=== PATIENT | male | born 1970 | race American Indian/Alaskan Native ===

== ENCOUNTER 2021-04-01 05:35 | Inpatient (IN) | payer SELFPAY ==
[2021-04-01] MEDS ORDERED: NORepinephrine/NS 4 MG-250 ML 4 MG/250 ML BAG IV ONE (05:44)
[2021-04-01] MEDS ORDERED: EPINEPHrine 1 MG/1 ML 8 MG in SODIUM CHLORIDE 0.9% 250ML 242 ML IV ONE (05:46)
[2021-04-01] MEDS ORDERED: SODIUM CHLORIDE 0.9% 1000 ML 1,000 ML IV ONE ×2 (05:52→09:34)
[2021-04-01] MEDS ORDERED: fentaNYL 100 MCG/2 ML INJ IV PRN ×2 (05:53→12:48)
[2021-04-01] MEDS ORDERED: MINERAL OIL/PETROLATUM, WHITE OPHTH OINT 3.5 GM OU PRN (05:53)
[2021-04-01] MEDS ORDERED: LIP THERAPY VASELINE TP PRN (05:53)
[2021-04-01] MEDS ORDERED: fentaNYL DRIP Premix 2,000 MCG/100 ML BAG IV SCH (06:00)
[2021-04-01] MEDS: NORepinephrine/NS 4 MG-250 ML 4 MG/250 ML BAG IV SCH ×3 (06:00→15:53)
--- NOTE | 2021-04-01 06:00 | Emergency Department Report ---
<PORTER MCDANIELSVIANCA - Last Filed: 04/01/21 05:56> ED CPR HPI - General Chief Complaint: Cardiac Arrest/CPR Stated Complaint: RESP ARREST Time Seen by Provider: 04/01/21 05:35 Source: EMS Mode of arrival: Stretcher Limitations: Altered Mental Status, Other - History of Present Illness Initial Comments: Patient is a 50-year-old male who presents emergency room with EMS for cardiac arrest. Patient initially was in route with EMS for altered mental status and the patient became bradycardia and went to cardiac arrest. EMS initiated CPR. The patient went to cardiac arrest as soon as EMS pulled into the hospital. A.m. . CPR in progress. Patient intubated with a Arturo tube. Initial complaint that the family gave to EMS was altered mental status and coffee-ground emesis. MD Complaint: stopped breathing -: minute(s) Place: other (In the back of the ambulance) Bystander CPR Performed: Yes AED Applied by Bystander/Youth Coordinator: No Shock Advised: No Initial Findings in the Field: lethargic ROSC in the Field: No Associated Injuries: No Treatments Prior to Arrival: BMV, other airway device, chest compressions - Related Data Allergies Allergy/AdvReac Type Severity Reaction Status Date / Time No Known Allergies Allergy Unverified 04/01/21 06:01 ED Review of Systems Comment: Unobtainable due to pts medical conditions ED Past Medical Hx - Past Medical History Previous Medical History?: Yes Hx Hypertension: Yes - Surgical History Past Surgical History?: No - Family History Family history: no significant ED Physical Exam - General Limitations: Other General appearance: obtunded - Head Head exam: Present: atraumatic, normocephalic - Eye Eye exam: Present: scleral icterus - ENT ENT exam: Present: mucous membranes dry - Neck Neck exam: Present: normal inspection - Respiratory Respiratory exam: Present: decreased breath sounds. Absent: respiratory distress, wheezes, rales - Cardiovascular Cardiovascular Exam: Present: other (No pulse noted). Absent: systolic murmur, diastolic murmur, rubs, gallop - GI/Abdominal GI/Abdominal exam: Present: soft, diminished bowel sounds - Rectal Rectal exam: Present: deferred - Extremities Exam Extremities exam: Present: normal inspection - Back Exam Back exam: Present: normal inspection - Neurological Exam Neurological exam: Present: altered - Skin Skin exam: Present: warm, dry, intact, normal color. Absent: rash ED Course - Reevaluation(s) Reevaluation #1: Initial evaluation done. Patient went to cardiac arrest with EMS. Report received from EMS. CPR continued. Patient given 1 round of epi. Patient had spontaneous return of circulation. Patient blood pressure low. Patient started on Levophed. Colliver in accordance with ACLS guidelines. See code note. 04/01/21 05:32 Reevaluation #2: Patient is Arturo tube removed and the patient was reintubated to the ET tube. 04/01/21 05:45 Reevaluation #3: Patient's heart in the 80s. Patient has a pulse. Patient's lung sounds are clear. Patient on ventilator. Patient's blood pressures decreased and the Levophed was increased. 04/01/21 06:14 Reevaluation #4: Patient blood pressure improved. Patient still on the ventilator. Patient signed out to the oncoming physician, Dr. Silva. Final disposition will come from Dr. Silva. 04/01/21 06:16 - EJ/Peripheral Line Neck R Time Out Performed: Yes Indications: multiple IV sites needed Skin Cleansed in Sterile Fashion: Yes Size: 18 Dressing Placed: Tegaderm, tape Patient Tolerated Procedure: well, no complications - Intubation Time Out Performed: Yes Sedative: none Laryngoscope: fiberoptic video scope Size: 4 Assist Device Used: fiberoptic device ET Tube Size: 7.5 Tube Secured Depth (cm): 22 Tube Secured Location: teeth Tube Placement Confirmation: visualized tube passing t, equal breath sounds bilat, no breath sounds over epi, confirmation by capnometr Patient Tolerated Procedure: well, no complications Intubation Complications: none ED Medical Decision Making - Radiology Data Radiology results: report reviewed, image reviewed - Differential Diagnosis Cardiac arrest, GI bleed, respiratory failure, altered mental status, ICH Critical Care Time: Yes Critical care time in (mins) excluding proc time.: 35 Critical Care Time: 35 minutes ED Disposition Clinical Impression: Cardiac arrest, Upper GI bleed, Acute metabolic encephalopathy, Acute liver failure, Atrial fibrillation, Alcoholic liver disease Disposition: ADMITTED INPATIENT Is pt being admited?: Yes Does the pt Need Aspirin: No Condition: Critical Referrals: PRIMARY CARE, [Primary Care Provider] - 3-5 Days Time of Disposition: 06:17 <CASH SILVA - Last Filed: 04/01/21 08:55> ED CPR HPI - History of Present Illness Initial Comments: I obtained further history from upon her arrival. is Mrs. Schilling phone #[phone]. also gave contact information for next of kin who is patient's brother Chirga Gloria phone #[phone] mobile home #4 Brother [phone] stated that Mr. Tan has had abdominal pain rating to the back for the last several days. He also has had bloody vomitus and bloody stools for the last few days. This morning patient was gasping for air. He she laid the patient down on the f saul. She is afraid that the patient will go into "arrest" and she will have to do CPR. Patient's last a lot of weight over the last few months. He has not received medical care in quite some time. He takes ibuprofen daily for chronic left shoulder pain. He has a chronic left shoulder dislocation. He drinks 12 large "tall boy" beers per day. He is unemployed. He has 2 biological children as well as 2 stepchildren with his . ED Review of Systems ROS: Stated complaint: RESP ARREST Other details as noted in HPI ED Past Medical Hx - Past Medical History Previous Medical History?: Yes Additional medical history: Rectal fistula, neck abscess, chronic left shoulder dislocation - Surgical History Past Surgical History?: Yes Additional Surgical History: Rectal fistula surgery, neck abscess surgical I&D - Family History Family history: other (Family history noncontributory during this encounter) - Social History Smoking Status: Current Every Day Smoker Substance Use Type: Alcohol ED Course Vital Signs 04/01/21 04/01/21 04/01/21 06:15 07:00 07:06 Temperature Pulse Rate 94 H 108 H 106 H Respiratory 17 18 19 Rate Blood Pressure 109/14 103/28 88/37 O2 Sat by Pulse 100 100 100 Oximetry 04/01/21 04/01/21 04/01/21 07:10 07:16 07:20 Temperature Pulse Rate 106 H 97 H 102 H Respiratory 19 18 19 Rate Blood Pressure 68/18 86/29 81/21 O2 Sat by Pulse 100 100 Oximetry 04/01/21 04/01/21 04/01/21 07:29 07:31 07:35 Temperature Pulse Rate 97 H 103 H 96 H Respiratory 18 18 16 Rate Blood Pressure 86/36 78/27 O2 Sat by Pulse 100 100 Oximetry 04/01/21 04/01/21 04/01/21 07:41 07:45 07:48 Temperature 90.1 F L Pulse Rate 97 H 102 H Respiratory 18 17 Rate Blood Pressure 75/30 80/29 O2 Sat by Pulse 100 Oximetry 04/01/21 04/01/21 04/01/21 07:50 07:55 08:01 Temperature Pulse Rate 96 H 106 H 106 H Respiratory 18 19 19 Rate Blood Pressure 85/22 97/13 98/47 O2 Sat by Pulse 100 100 100 Oximetry 04/01/21 04/01/21 04/01/21 08:05 08:11 08:15 Temperature Pulse Rate 104 H 99 H 107 H Respiratory 19 19 20 Rate Blood Pressure 89/21 95/40 98/41 O2 Sat by Pulse 100 100 Oximetry 04/01/21 04/01/21 08:20 08:25 Temperature Pulse Rate 101 H 103 H Respiratory 19 21 Rate Blood Pressure 92/36 96/38 O2 Sat by Pulse 100 100 Oximetry - Reevaluation(s) Reevaluation #5: 04/01/21 06:46 I received critical values of hemoglobin 3, PTT 51 INR 5.74 PTT 89 immediately attempted to contact spouse for further history per phone. No answer 04/01/21 07:20 I evaluated patient. Patient has jaundice sclera. He is not responsive. There is melena obvious at the rectal region. On digital exam melanotic stool H emoccult positive. Guaiac card sent to lab. I placed CVL under emergent conditions. Femoral site chosen for CVL for expedited resuscitation. Patient requires vasopressor and emergent blood transfusion. I asked nurse to O- blood from blood bank. 04/01/21 07:30 Nurse is currently transfusing 2 units of O- blood. 04/01/21 07:58 I spoke with in person. I brought to the bedside. Nurse reported patient moving all 4 extremities. Versed bolus and infusion ordered. 04/01/21 08:36 I spoke with hospitalist to arrange CCU admission. Octreotide infusion and bolus ordered. Ceftriaxone ordered. Asked nurse to expedite FFP transfusion. - Central Line Placement Right Femoral Consent Obtained: emergent situation Time Out Performed: Yes Patient Placed on Monitor/Pulse Ox: Yes Prep: mask, gown, gloves, other (Drape cap ) Central Line Prep: Chlorhexidine scrub Ultrasound Used for Placement: Yes Central Line Lumen Inserted: triple Reason for Insertion: Emergency Venous Access Bloods Obtained for Lab: Yes Central Line Position: good blood return, sutured in place with nyl, other (Biopatch) Dressing Applied: Tegaderm Patient Tolerated Procedure: well Complications: none ED Medical Decision Making - Lab Data Result diagrams: 04/01/21 05:56 04/01/21 05:56 - EKG Data -: EKG Interpreted by Me - EKG Data 04/01/21 07:25 EKG obtained 0655 EKG interpreted by me ventricular rate 100 bpm atrial fibrillation normal axis prolonged QTC no ST elevation nonspecific T wave pattern - Radiology Data Radiology results: report reviewed Patient Name: DEVENDRA TAN Gender: Male Date of : 1970 Referring Provider: VIANCA BUENROSTRO III Organization: [facility] Accession Number: [id number] Requested Date: April 01, 2021 06:40 Report Status: Final Requested Procedure: 1 Procedure Description: CT head/brain wo con Modality: CT Findings Reporting MD: Jaquan Fregoso Dictation Time: April 01, 2021 05:56 [place] Floors Installer: Not available Senior Php Developer Date: CT HEAD WITHOUT CONTRAST INDICATION: Altered Mental Status. TECHNIQUE: All CT scans at this location are performed using CT dose reduction for ALARA by means of automated exposure control. COMPARISON: None available. FINDINGS: HEMORRHAGE: None. EXTRA-AXIAL SPACES: Normal in size and morphology for the patient's age. VENTRICULAR SYSTEM: Normal in size and morphology for the patient's age. BRAIN PARENCHYMA: No acute findings. MIDLINE SHIFT OR HERNIATION: None. ORBITS: Normal as visualized. SOFT TISSUES OF HEAD: Normal. CALVARIUM: Normal. VISUALIZED PARANASAL SINUSES AND MASTOID AIR CELLS: Clear. ADDITIONAL FINDINGS: None. IMPRESSION: 1. The exam is limited due to patient motion. Accounting for this, no acute intracranial abnormality. Signer Name: Jaquan Fregoso MD Signed: 04/01/2021 5:56 AM Workstation Name: [id number] - Medical Decision Making 1. Acute upper GI bleed: Patient takes ibuprofen daily for chronic left shoulder pain. Patient is a chronic, shoulder dislocation as reported per . Differential diagnosis includes peptic ulcer disease alcoholic gastritis. Esophageal variceal bleed is also probable with history of alcohol liver disease. Blood pressure improved with transfusion of O- blood. Patient still requires Levophed vasopressor therapy. Dr. Nunez machine set up technician recommended octreotide to address likely variceal bleed as well as prophylactic ceftriaxone to address SBP in the setting of likely alcoholic liver cirrhosis. 2. Alcoholic liver disease: Jaundice evident on exam. AST ALT bilirubin all markedly elevated patient exhibits coagulopathy. FFP ordered. 3. Acute metabolic encephalopathy due to poor perfusion. Ammonia level ordered to rule out or rule in hepatic encephalopathy. CT head without acute findings. 4. Cardiac arrest likely due to severe hemorrhage. CT angiogram of the chest to rule out pulmonary embolism. Will obtain serial troponin values to rule out MN. CT abdomen pelvis ordered to rule in or rule out other possible causes of cardiac arrest. 5. Atrial fibrillation: Normal ventricular rate after resuscitation with blood transfusion Critical care time in (mins) excluding proc time.: 100 Critical care attestation.: If time is entered above; I have spent that time in minutes in the direct care of this critically ill patient, excluding procedure time. 100 minutes of critical care time excluding procedures were used in the care of the patient. I came immediately to the bedside upon patient's return from CT scan. I inserted right femoral CVL. I discussed case with family members who arrived. I discussed treatment plan with the nursing team members. I reviewed electronic record. I kept the family members informed. Patient required multiple interventions and reassessments.
--- NOTE | 2021-04-01 06:16 | XRay Report ---
CHEST 1 VIEW INDICATION: ETT placement. COMPARISON: None. FINDINGS: Support devices: Endotracheal tube has been placed with tip approximately 4 cm above the meli. [place] suzie tube tip is in the distal stomach. Heart: Stable. Lungs/Pleura: No pneumothorax. There is mild airspace disease in the right mid and lower lung. IMPRESSION: 1. Tubes in satisfactory position. 2. Mild airspace disease in the right mid to lower lung is concerning for pneumonia. Given the distri bution, aspiration could have this appearance. Signer Name: Jaquan Fregoso MD Signed: 04/01/2021 6:12 AM Workstation Name: [id number]
[2021-04-01 06:42] LABS: INR 5.74 (0.87-1.13); Partial Thromboplastin Time 89.8 Sec. (24.2-36.6)
[2021-04-01 06:47] LABS: Mean Corpuscular HGB Conc 27 % (32-34); Platelet Count 150 K/mm3 (140-440); Red Blood Count 0.91 M/mm3 (3.65-5.03)
[2021-04-01] MEDS ORDERED: SODIUM CHLORIDE 0.9% 500 ML 500 ML IV ONE ×3 (06:47→09:32)
[2021-04-01 06:49] LABS: Creatine Kinase MB 3.8 ng/mL (0.0-4.0)
[2021-04-01 06:50] LABS: Alanine Aminotransferase 235 units/L (7-56); Albumin 1.3 g/dL (3.9-5); BUN/Creatinine Ratio 12; Blood Urea Nitrogen 23 mg/dL (9-20); Calcium 7.5 mg/dL (8.4-10.2); Hemolysis Index 0
[2021-04-01 06:52] LABS: Hemoglobin 3.2 gm/dl (11.8-15.2)
[2021-04-01 06:54] LABS: Hematocrit 11.9 % (35.5-45.6); Mean Corpuscular Volume 130 fl (84-94); Red Cell Distribution Width 21.1 % (13.2-15.2)
[2021-04-01] MEDS ORDERED: MIDAZOLAM 5 MG/5 ML INJ MDV IV NR (07:00)
--- NOTE | 2021-04-01 07:00 | Cat Scan Report ---
CT HEAD WITHOUT CONTRAST INDICATION: Altered Mental Status. TECHNIQUE: All CT scans at this location are performed using CT dose reduction for ALARA by means of automated e xposure control. COMPARISON: None available. FINDINGS: HEMORRHAGE: None. EXTRA-AXIAL SPACES: Normal in size and morphology for the patient's age. VENTRICULAR SYSTEM: Normal in size and morphology for the patient's age. BRAIN PARENCHYMA: No acute findings. MIDLINE SHIFT OR HERNIATION: None. ORBITS: Normal as visualized. SOFT TISSUES OF HEAD: Normal. CALVARIUM: Normal. VISUALIZED PARANASAL SINUSES AND MASTOID AIR CELLS: Clear. ADDITIONAL FINDINGS: None. IMPRESSION: 1. The exam is limited due to patient motion. Accounting for this, no acute intracranial abnormality. Signer Name: Jaquan Fregoso MD Signed: 04/01/2021 6:56 AM Workstation Name: [id number]
[2021-04-01] MEDS ORDERED: MIDAZOLAM 5 MG/5 ML INJ MDV IV ONE (07:44)
[2021-04-01] MEDS: MIDAZOLAM 2 MG/2 ML INJ IV PRN ×2 (07:48→08:00)
[2021-04-01 07:56] LABS: Bacteria,Urine 4+ /HPF (Negative); Bilirubin,Urine SM (Negative); Blood,Urine LG (Negative); Color,Urine Amber (Yellow); Hyaline Casts,Urine 81 /LPF; Mucus,Urine FEW /HPF; Renal Epithelial Cells,Urine 6 /LPF
[2021-04-01] MEDS ORDERED: PANTOPRAZOLE 40 MG INJ IV ONE (08:24)
[2021-04-01] MEDS ORDERED: cefTRIAXone/NS 1 GM/50 ML 1 GM/50 ML BAG IV ONE (08:28)
[2021-04-01 08:43] LABS: Ictotest,Urine 1+ (Negative)
[2021-04-01] MEDS ORDERED: PANTOPRAZOLE 80 MG in SODIUM CHLORIDE 0.9% 100 ML IV SCH (09:00)
[2021-04-01] MEDS ORDERED: MIDAZOLAM 100 MG in SODIUM CHLORIDE 0.9% 80 ML IV ONE (09:00)
--- NOTE | 2021-04-01 09:21 | History and Physical Report ---
History of Present Illness Date of examination: 04/01/21 Date of admission: 04/01/21 Chief complaint: Vomiting blood, altered mental status,cardiac arrest History of present illness: Patient is a 50-year-old male who presents to Emergency Dept with EMS for cardiac arrest. History obtained from medical records as patient is intubated and no family present nearby. Patient was en route with EMS for altered mental status when he became bradycardic and went to cardiac arrest. EMS initiated CPR. The patient went into cardiac arrest as soon as EMS pulled into the [facility]. He was resuscitated, intubated. According to records, stated that patient has had vomiting blood, bloody stools and abdominal pain radiating to the back for the past several days. Also patient was short of breath this morning, gasping for air. Also patient has lost a lot of weight over the last few months. He has not received medical care in quite some time. In addition, he takes ibuprofen daily for chronic left shoulder pain. He drinks 12 large "tall boy" beers per day. He was seen and evaluated in ED. Labs show severe anemia with Hgb 3.2, coagulopathy with INR 5.74 and bicarb of 5. Blood and FFP transfusions were ordered, urgent GI consult placed. He will be admitted to ICU. Past History Past Medical History: other (Unknown) Past Surgical History: Other (Unknown) Social history: alcohol abuse, full code Family history: no significant family history Medications and Allergies Allergies Allergy/AdvReac Type Severity Reaction Status Date / Time No Known Allergies Allergy Verified 04/01/21 13:40 Home Medications Medication Instructions Recorded Confirmed Last Taken Type No Known Home Medications [No 04/01/21 04/01/21 Unknown History Reported Home Medications] Active Meds: Active Medications Hydrophilic Ointment (Lip Therapy Vaseline) 1 applic TP Q2HR PRN PRN Reason: Dry Lips Norepinephrine (Levophed Drip 4 Mg/Ns 250 Ml) 4 mg in 250 mls @ 7.5 mls/hr IV TITR ALEE; Protocol Last Titration: 04/01/21 06:30 Dose: 30 mcg/min, 112.5 mls/hr Documented by: Midazolam HCl 100 mg/ Sodium (Chloride) 100 mls @ 1 mls/hr IV TITR ONE; P rotocol Stop: 04/05/21 12:59 Last Admin: 04/01/21 08:48 Dose: 1 mg/hr, 1 mls/hr Documented by: Pantoprazole Sodium 80 mg/ (Sodium Chloride) 100 mls @ 10 mls/hr IV DIRECT ALEE Last Admin: 04/01/21 09:19 Dose: 8 mg/hr, 10 mls/hr Documented by: Octreotide Acetate 500 mcg/ (Sodium Chloride) 101 mls @ 10.1 mls/hr IV TITR ONE; Protocol Stop: 04/01/21 18:32 Midazolam HCl (Midazolam 2 Mg/2 Ml Inj) 2 mg IV Q10MIN PRN PRN Reason: Sedation Last Admin: 04/01/21 08:00 Dose: 2 mg Documented by: Multi-Ingred Cream/Lotion/Oil/Oint (Mineral Oil/Petrolatum, White Ophth Oint 3.5 Gm) 1 applic OU Q4HR PRN PRN Reason: Dry Eye(s) Octreotide Acetate (Octreotide 50 Mcg/1 Ml Inj) 50 mcg IV ONCE ONE Stop: 04/01/21 08:34 Review of Systems ROS unobtainable: due to endotracheal tube Exam - Physical Exam Narrative exam: Gen: Not in acute distress, lying in bed, intubated, hypothermia HEENT:Normocephalic, atraumatic Neck:supple, no JVD Lungs: Clear to auscultation bilaterally, no wheeze Heart:S1 and S2 reg, no murmurs, rubs or gallop Abd:Soft, non tender, non distended, normal bowel sounds Ext:No edema. no clubbing, no cyanosis Neuro: Intubated, sedated - Constitutional Vitals: Temp Pulse Resp BP Pulse Ox 90.1 F L 103 H 21 96/38 100 04/01/21 07:48 04/01/21 08:25 04/01/21 08:25 04/01/21 08:25 04/01/21 08:25 HEART Score - HEART Score Troponin: Troponin T < 0.010 ng/mL (0.00-0.029) 04/01/21 06:45 Results - Labs CBC & Chem 7: 04/01/21 05:56 04/01/21 05:56 Labs: Abnormal lab results 04/01/21 04/01/21 04/01/21 Range/Units 05:56 05:56 05:56 WBC 26.7 H (4.5-11.0) K/mm3 RBC 0.91 L (3.65-5.03) M/mm3 Hgb 3.2 L* (11.8-15.2) gm/dl Hct 11.9 L* (35.5-45.6) % MCV 130 H (84-94) fl MCH 35 H (28-32) pg MCHC 27 L (32-34) % RDW 21.1 H (13.2-15.2) % PT 51.0 H (12.2-14.9) Sec. INR 5.74 H* (0.87-1.13) APTT 89.8 H* (24.2-36.6) Sec. Potassium 5.3 H (3.6-5.0) mmol/L Carbon Dioxide 5 L* (22-30) mmol/L BUN 23 H (9-20) mg/dL Creatinine 2.0 H (0.8-1.3) mg/dL Glucose 62 L (75-100) mg/dL Lactic Acid (0.7-2.0) mmol/L Calcium 7.5 L (8.4-10.2) mg/dL Total Bilirubin 6.10 H (0.1-1.2) mg/dL AST 1186 H (5-40) units/L ALT 235 H (7-56) units/L Ammonia (25-60) umol/L Total Protein 3.9 L (6.3-8.2) g/dL Albumin 1.3 L (3.9-5) g/dL Lipase (13-60) units/L Urine WBC (Auto) (0.0-6.0) /HPF 04/01/21 04/01/21 04/01/21 Range/Units 05:56 06:45 07:32 WBC (4.5-11.0) K/mm3 RBC (3.65-5.03) M/mm3 Hgb (11.8-15.2) gm/dl Hct (35.5-45.6) % MCV (84-94) fl MCH (28-32) pg MCHC (32-34) % RDW (13.2-15.2) % PT (12.2-14.9) Sec. INR (0.87-1.13) APTT (24.2-36.6) Sec. Potassium (3.6-5.0) mmol/L Carbon Dioxide (22-30) mmol/L BUN (9-20) mg/dL Creatinine (0.8-1.3) mg/dL Glucose (75-100) mg/dL Lactic Acid 23.90 H* (0.7-2.0) mmol/L Calcium (8.4-10.2) mg/dL Total Bilirubin (0.1-1.2) mg/dL AST (5-40) units/L ALT (7-56) units/L Ammonia (25-60) umol/L Total Protein (6.3-8.2) g/dL Albumin (3.9-5) g/dL Lipase 241 H (13-60) units/L Urine WBC (Auto) 26.0 H (0.0-6.0) /HPF 04/01/21 04/01/21 Range/Units 07:33 07:33 WBC (4.5-11.0) K/mm3 RBC (3.65-5.03) M/mm3 Hgb (11.8-15.2) gm/dl Hct (35.5-45.6) % MCV (84-94) fl MCH (28-32) pg MCHC (32-34) % RDW (13.2-15.2) % PT (12.2-14.9) Sec. INR (0.87-1.13) APTT (24.2-36.6) Sec. Potassium (3.6-5.0) mmol/L Carbon Dioxide (22-30) mmol/L BUN (9-20) mg/dL Creatinine (0.8-1.3) mg/dL Glucose (75-100) mg/dL Lactic Acid 23.10 H* (0.7-2.0) mmol/L Calcium (8.4-10.2) mg/dL Total Bilirubin (0.1-1.2) mg/dL AST (5-40) units/L ALT (7-56) units/L Ammonia 710.0 H (25-60) umol/L Total Protein (6.3-8.2) g/dL Albumin (3.9-5) g/dL Lipase (13-60) units/L Urine WBC (Auto) (0.0-6.0) /HPF Assessment and Plan Cardiac arrest Patient resuscitated, intubated Severe anemia from Acute GI Bleed Hgb 3.2 has received 2 Units PRBC Will now get FFP I have ordered 4 Units PRBC more Acute GI Bleed GI to do endoscopy at bedside Vit K 10 mg ordered Acute resp failure Intubated Consult Pulm, Dr. Mcmanus. I discussed case with him Hypovolemic shock On Levophed at mas dose Will Add Vasopressin iv fluid bolus 1000 cc NS, then re-evaluate Coagulopathy INR 5.7 Likely from alcoholic liver disease Vit K FFP Check Fibrinogen level Alcoholic liver disease Transaminitis Acute kidney injury Cr 2.0 Consult Nephrology I discussed with Dr. Buenrostro Hyperkalemia Calcium, Insulin, kayexalate and repeat labs Metabolic acidosis, Lactic acidosis Give Bicarb Hypothermia Leukocytosis Blood cultures drawn start Cefepime Prognosis poor The high probability of a clinically significant, sudden or life threatening deterioration of the cardiac, pulmonology, renal and hepatic systems required my full and direct attention, intervention and personal management. The aggregate critical care time was 75 minutes. This time is in addition to time spent performing reported procedures but includes the following: [x] Data Review and interpretation [x] Patient assessment and monitoring of vital signs [x] Documentation [x] Medication orders and management
[2021-04-01] MEDS ORDERED: OCTREOTIDE 50 MCG/1 ML INJ IV NR (09:30)
[2021-04-01] MEDS ORDERED: PHYTONADIONE 10 MG/1 ML (ADULT ONLY)*INJECTION SUB-Q STA (09:30)
--- NOTE | 2021-04-01 09:53 | Gastroenterology Consultation ---
History of Present Illness - Reason for Consult Consult date: 04/01/21 gi bleed Requesting physician: CASH VICK - History of Present Illness history obtained from his on the phone [phone] as patient intubated and unable to provide history vomiting blood x 6 weeks, small amount of blood at first, then yesterday had melena mixed with dark blood, and had an episode hematemesis last night EMS called CPR performed in the field, patient resuscitated, currently on protonix, octreotide, pressor support PMH etoh migraines left shoulder dislocation PSH I&D in neck rectal fistulectomy MEDS - no prescription meds ALLergies - NKDA Soc - significant EtOh, 6 tall boys a day, long history etoh; positive daily tobacco use FH - mother cancer (unknown); father - cirrhosis (alcoholic) Medications and Allergies Allergies Allergy/AdvReac Type Severity Reaction Status Date / Time No Known Allergies Allergy Unverified 04/01/21 06:01 Active Meds: Active Medications Hydrophilic Ointment (Lip Therapy Vaseline) 1 applic TP Q2HR PRN PRN Reason: Dry Lips Norepinephrine (Levophed Drip 4 Mg/Ns 250 Ml) 4 mg in 250 mls @ 7.5 mls/hr IV TITR ALEE; Protocol Last Titration: 04/01/21 06:30 Dose: 30 mcg/min, 112.5 mls/hr Documented by: Pantoprazole Sodium 80 mg/ (Sodium Chloride) 100 mls @ 10 mls/hr IV DIRECT ALEE Last Admin: 04/01/21 09:19 Dose: 8 mg/hr, 10 mls/hr Documented by: Octreotide Acetate 500 mcg/ (Sodium Chloride) 101 mls @ 10.1 mls/hr IV TITR ONE; Protocol Stop: 04/01/21 19:59 Propofol (Diprivan 10 Mg/Ml) 1,000 mg in 100 mls @ 2.37 mls/hr IV TITR ALEE; Protocol Sodium Chloride (Nacl 0.9% 1000 Ml) 1,000 mls @ 999 mls/hr IV BOLUS ONE Stop: 04/01/21 10:34 Multi-Ingred Cream/Lotion/Oil/Oint (Mineral Oil/Petrolatum, White Ophth Oint 3.5 Gm) 1 applic OU Q4HR PRN PRN Reason: Dry Eye(s) Octreotide Acetate (Octreotide 50 Mcg/1 Ml Inj) 50 mcg IV ONCE NR Stop: 04/01/21 10:30 Review of Systems - Review of Systems ROS unobtainable: due to endotracheal tube Exam - Constitutional Vital Signs: Temp Pulse Resp BP Pulse Ox 90.1 F L 96 H 21 71/38 99 04/01/21 07:48 04/01/21 09:17 04/01/21 08:25 04/01/21 09:17 04/01/21 09:17 General appearance: other (intubated, icteric) - EENT Eyes: scleral icterus - Neck Neck: other (not mass appreciated) - Respiratory Respiratory effort: other (intubated) - Cardiovascular Rhythm: other (tachy) - Gastrointestinal General gastrointestinal: Present: soft - Integumentary Integumentary: Present: dry - Musculoskeletal Musculoskeletal: normal - Neurologic Neurological: other (sedated, not responding to verbal stimuli) - Psychiatric Psychiatric: other (sedated, not responding to verbal stimuli) - Labs CBC & Chem 7: 04/01/21 05:56 04/01/21 05:56 Lab Results: Laboratory Results - last 24 hr 04/01/21 04/01/21 04/01/21 05:56 05:56 05:56 WBC 26.7 H RBC 0.91 L Hgb 3.2 L* Hct 11.9 L* MCV 130 H MCH 35 H MCHC 27 L RDW 21.1 H Plt Count 150 Lymph # (Auto) [employer] PT 51.0 H INR 5.74 H* APTT 89.8 H* Sodium 137 Potassium 5.3 H Chloride 104.2 Carbon Dioxide 5 L* Anion Gap 33 BUN 23 H Creatinine 2.0 H Estimated GFR 43 BUN/Creatinine Ratio 12 Glucose 62 L Lactic Acid Calcium 7.5 L Total Bilirubin 6.10 H AST 1186 H ALT 235 H Alkaline Phosphatase 87 Ammonia Total Creatine Kinase 145 CK-MB (CK-2) 3.8 CK-MB (CK-2) Rel Index 2.6 Troponin T < 0.010 Total Protein 3.9 L Albumin 1.3 L Albumin/Globulin Ratio 0.5 Lipase Urine Color Urine Turbidity Urine pH Ur Specific [place] Urine Protein Urine Glucose (UA) Urine Ketones Urine Blood Urine Nitrite Urine Bilirubin Urine Ictotest Urine Urobilinogen Ur Leukocyte Esterase Urine WBC (Auto) Urine RBC (Auto) U Epithel Cells (Auto) Urine Bacteria (Auto) Ur Renal Epithelial Cell Hyaline Casts Urine Mucus Blood Type Antibody Screen Crossmatch 04/01/21 04/01/21 04/01/21 05:56 06:00 06:45 WBC RBC Hgb Hct MCV MCH MCHC RDW Plt Count Lymph # (Auto) PT INR APTT Sodium Potassium Chloride Carbon Dioxide Anion Gap BUN Creatinine Estimated GFR BUN/Creatinine Ratio Glucose Lactic Acid 23.90 H* Calcium Total Bilirubin AST ALT Alkaline Phosphatase Ammonia Total Creatine Kinase CK-MB (CK-2) CK-MB (CK-2) Rel Index Troponin T Total Protein Albumin Albumin/Globulin Ratio Lipase 241 H Urine Color Urine Turbidity Urine pH Ur Specific [place] Urine Protein Urine Glucose (UA) Urine Ketones Urine Blood Urine Nitrite Urine Bilirubin Urine Ictotest Urine Urobilinogen Ur Leukocyte Esterase Urine WBC (Auto) Urine RBC (Auto) U Epithel Cells (Auto) Urine Bacteria (Auto) Ur Renal Epithelial Cell Hyaline Casts Urine Mucus Blood Type A POSITIVE Antibody Screen Negative Crossmatch See Detail 04/01/21 04/01/21 04/01/21 06:45 07:32 07:33 WBC RBC Hgb Hct MCV MCH MCHC RDW Plt Count Lymph # (Auto) PT INR APTT Sodium Potassium Chloride Carbon Dioxide Anion Gap BUN Creatinine Estimated GFR BUN/Creatinine Ratio Glucose Lactic Acid Calcium Total Bilirubin AST ALT Alkaline Phosphatase Ammonia 710.0 H Total Creatine Kinase CK-MB (CK-2) CK-MB (CK-2) Rel Index Troponin T < 0.010 Total Protein Albumin Albumin/Globulin Ratio Lipase Urine Color Marija Urine Turbidity Cloudy Urine pH 5.0 Ur Specific [place] 1.014 Urine Protein 30 mg/dl Urine Glucose (UA) Neg Urine Ketones Neg Urine Blood Lg Urine Nitrite Neg Urine Bilirubin Sm Urine Ictotest 1+ Urine Urobilinogen 4.0 Ur Leukocyte Esterase Neg Urine WBC (Auto) 26.0 H Urine RBC (Auto) 62.0 U Epithel Cells (Auto) 2.0 Urine Bacteria (Auto) 4+ Ur Renal Epithelial Cell 6 Hyaline Casts 81 Urine Mucus Few Blood Type Antibody Screen Crossmatch 04/01/21 07:33 WBC RBC Hgb Hct MCV MCH MCHC RDW Plt Count Lymph # (Auto) PT INR APTT Sodium Potassium Chloride Carbon Dioxide Anion Gap BUN Creatinine Estimated GFR BUN/Creatinine Ratio Glucose Lactic Acid 23.10 H* Calcium Total Bilirubin AST ALT Alkaline Phosphatase Ammonia Total Creatine Kinase CK-MB (CK-2) CK-MB (CK-2) Rel Index Troponin T Total Protein Albumin Albumin/Globulin Ratio Lipase Urine Color Urine Turbidity Urine pH Ur Specific [place] Urine Protein Urine Glucose (UA) Urine Ketones Urine Blood Urine Nitrite Urine Bilirubin Urine Ictotest Urine Urobilinogen Ur Leukocyte Esterase Urine WBC (Auto) Urine RBC (Auto) U Epithel Cells (Auto) Urine Bacteria (Auto) Ur Renal Epithelial Cell Hyaline Casts Urine Mucus Blood Type Antibody Screen Crossmatch Assessment and Plan patient getting blood and FFP ordered; hemodynamically unstable, picture consistent with variceal bleed Ceftriaxone 1g IV daily for 7 days for SBP prophylaxis Emergent EGD I discussed with the the patient's critical situation and life saving measures that are being attempted - Patient Problems (1) Alcoholic liver disease Current Visit: Yes Status: Acute (2) Cardiac arrest Current Visit: Yes Status: Acute (3) Upper GI bleed Current Visit: Yes Status: Acute
[2021-04-01] MEDS ORDERED: OCTREOTIDE 500 MCG in SODIUM CHLORIDE 0.9% 100 ML IV ONE (10:00)
[2021-04-01] MEDS ORDERED: CEFEPIME/NS 2 GM/100 ML 2 GM/100 ML BAG IV SCH ×2 (10:00→12:00)
--- NOTE | 2021-04-01 10:12 | Electrocardiograph Report ---
[facility] Test Date: 2021-04-01 Test Time: 06:55:13 Pat Name: DEVENDRA TAN Department: Room: Gender: M Avian Keeper: XI : 1970 Requested By: VIANCA BUENROSTRO III Order Number: [id number] Reading MD: Destin Hitchcock Measurements Intervals [place] Rate: 104 P: GA: QRS: 67 QRSD: 117 T: 104 QT: 402 QTc: 531 Interpretive Statements Atrial fibrillation Nonspecific intraventricular conduction delay Prolonged QT interval No previous ECG available for comparison Electronically Signed On 04-01-2021 10:11:56 EDT by Destin Hitchcock
[2021-04-01] MEDS ORDERED: SODIUM BICARB 8.4% 50 MEQ/50 ML SYRINGE IV NR (10:16)
[2021-04-01] MEDS ORDERED: MORPHINE 4 MG/1 ML INJ IV PRN (11:00)
[2021-04-01] MEDS ORDERED: ACETAMINOPHEN 325 MG/10.15 ML ORAL LIQD UNIT DOSE FEEDTUBE PRN (11:00)
[2021-04-01] MEDS ORDERED: MORPHINE 2 MG/1 ML INJ IV PRN (11:00)
[2021-04-01] MEDS ORDERED: VASOPRESSIN 20 UNIT in SODIUM CHLORIDE 0.9% 100 ML IV SCH (11:00)
--- NOTE | 2021-04-01 11:09 | Operative Report ---
Operative Report Operative Report: DOS: 04/01/21 SURGEON: Surya Nunez MD EGD WITH HEMOSTASIS REPORT PREOPERATIVE DIAGNOSIS and POSTOPERATIVE DIAGNOSIS: GI bleed ESTIMATED BLOOD LOSS: 500 cc DESCRIPTION OF PROCEDURE: A high-resolution EGD scope was passed through the oropharynx, esophagus, stomach, and second portion of duodenum. The scope was carefully withdrawn. Retroflexion was performed in the stomach. At the end of the procedure, the scope was cleaned using normal technique. Vital signs monitored continuously throughout. SEDATION: Provided by Anesthesiology Services. COMPLICATIONS: None. FINDINGS: * Large amount of blood throughout the entire upper GI tract significantly obscuring views. * Extremely limited views of duodenum could only see fresh blood no active source of bleeding seen * Extremely wound views of stomach can only see fresh blood no source for active bleeding seen, No varices were visualized and limited exam of the fundus * GE junction appeared to be approximately 40 cm from incisors * 2 columns small decompressed varices in the distal esophagus. There was continuous active oozing of blood near one of the varices, at about 34 cm from the incisors. Therefore decision was made to proceed with endoscopic variceal ligation. Scope was withdrawn, 7 shooter banding kit was placed on the scope and scope was reinserted. A total of 3 bands were placed. No active oozing was seen at the end of the procedure RECOMMENDATIONS: * Patient remains critically ill with massive blood loss and limited prognosis. Please continue to transfuse to goal hemoglobin of 7 as well as transfuse FFP goal INR 1.5 or less. Patient unlikely to benefit from TIPS given clinical picture and labs. He is not a liver transplant candidate due to his etoh use * Continue octreotide and Protonix drips and ceftriaxone 1 g daily for total of 7 days * I spoke with patient's on the phone and updated her
[2021-04-01] MEDS ORDERED: SODIUM BICARBONATE 150 MEQ in DEXTROSE 5% IN WATER 1,000 ML IV SCH (12:00)
[2021-04-01] MEDS ORDERED: SODIUM CHLORIDE 0.9% 500 ML 1,000 ML ONE (12:02)
[2021-04-01] MEDS ORDERED: LORazepam 2 MG/ML VIAL IV PRN (12:47)
[2021-04-01] MEDS ORDERED: LACTATED RINGERS 2,000 ML IV ONE (12:47)
[2021-04-01] MEDS ORDERED: DEXTROSE 50% IN WATER (25GM) 50 ML VIAL IV STA (12:57)
[2021-04-01] MEDS ORDERED: DEXTROSE 50% IN WATER (25GM) 50 ML SYRINGE IV SCH (13:00)
[2021-04-01] MEDS ORDERED: SODIUM CHLORIDE 0.9% 1000 ML 1,000 ML IV SCH (13:00)
--- NOTE | 2021-04-01 13:02 | Consultation ---
History of Present Illness - Reason for Consult Consult date: 04/01/21 acute renal failure, metabolic acidosis - History of Present Illness This is a 50-year-old male who presents for cardiac arrest, GI bleeding. History obtained from medical records as patient is intubated and no family present nearby. Per ED/hospital team, patient was en route with EMS for altered mental status when he became bradycardic and went to cardiac arrest. EMS initiated CPR. The patient went into cardiac arrest as soon as EMS pulled into the hospital. He was resuscitated, intubated. Per via prior phone call, patient had vomiting blood, bloody stools and abdominal pain radiating to the back for the past several days. At time of consult, patient intubated with Fi02 100%, sedated PMH, Family History, Surgical History, Social History obtained from chart review as able Past History Social history: alcohol abuse, full code Family history: no significant family history Medications and Allergies Allergies Allergy/AdvReac Type Severity Reaction Status Date / Time No Known Allergies Allergy Unverified 04/01/21 06:01 Active Meds: Active Medications Acetaminophen (Acetaminophen 325 Mg/10.15 Ml Oral Liqd Unit Dose) 650 mg FEEDTUBE Q6H PRN PRN Reason: Pain MILD(1-3)/Fever >100.5/[place] Dextrose (Dextrose 50% In Water (25gm) 50 Ml Syringe) 50 ml IV ONCE ALEE Stop: 04/01/21 15:00 Fentanyl (Fentanyl 100 Mcg/2 Ml Inj) 50 mcg IV Q2H PRN PRN Reason: Agitation Hydrophilic Ointment (Lip Therapy Vaseline) 1 applic TP Q2HR PRN PRN Reason: Dry Lips Norepinephrine (Levophed Drip 4 Mg/Ns 250 Ml) 4 mg in 250 mls @ 7.5 mls/hr IV TITR ALEE; Protocol Last Titration: 04/01/21 06:30 Dose: 30 mcg/min, 112.5 mls/hr Documented by: Pantoprazole Sodium 80 mg/ (Sodium Chloride) 100 mls @ 10 mls/hr IV DIRECT ALEE Last Admin: 04/01/21 09:19 Dose: 8 mg/hr, 10 mls/hr Documented by: Octreotide Acetate 500 mcg/ (Sodium Chloride) 101 mls @ 10.1 mls/hr IV TITR O NE; Protocol Stop: 04/01/21 19:59 Last Admin: 04/01/21 10:05 Dose: 50 mcg/hr, 10.1 mls/hr Documented by: Propofol (Diprivan 10 Mg/Ml) 1,000 mg in 100 mls @ 2.37 mls/hr IV TITR ALEE; Protocol Vasopressin 20 unit/ Sodium (Chloride) 101 mls @ 9.09 mls/hr IV TITR ALEE; Protocol Last Admin: 04/01/21 11:14 Dose: 0.03 units/min, 9.09 mls/hr Documented by: Cefepime HCl (Cefepime/Ns 2 Gm/100 Ml) 2 gm in 100 mls @ 200 mls/hr IV Q24H ALEE Sodium Bicarbonate 150 meq/ (Dextrose) 1,150 mls @ 125 mls/hr IV DIRECT ALEE Lactated Ringer's (Lactated Ringers) 2,000 mls @ 999 mls/hr IV BOLUS ONE Stop: 04/01/21 14:47 Lorazepam (Lorazepam 2 Mg/Ml Vial) 2 mg IV Q4H PRN PRN Reason: Agitation Morphine Sulfate (Morphine 2 Mg/1 Ml Inj) 2 mg IV Q4H PRN PRN Reason: Pain, Moderate (4-6) Morphine Sulfate (Morphine 4 Mg/1 Ml Inj) 4 mg IV Q4H PRN PRN Reason: Pain , Severe (7-10) Multi-Ingred Cream/Lotion/Oil/Oint (Mineral Oil/Petrolatum, White Ophth Oint 3.5 Gm) 1 applic OU Q4HR PRN PRN Reason: Dry Eye(s) Sodium Chloride (Sodium Chloride 0.9% 10 Ml Flush Syringe) 10 ml IV BID ALEE Sodium Chloride (Sodium Chloride 0.9% 10 Ml Flush Syringe) 10 ml IV PRN PRN PRN Reason: LINE FLUSH Review of Systems ROS unobtainable: due to endotracheal tube, due to mental status Exam - Vital Signs Vital signs: Vital Signs Pulse Resp BP Pulse Ox 94 H 17 109/14 100 04/01/21 06:15 04/01/21 06:15 04/01/21 06:15 04/01/21 06:15 - Physical Exam Narrative exam: Gen: in acute distress, intubated, ill appearing but sedated HEENT: Normocephalic, atraumatic Neck: ET tube noted Lungs: coarse mechanical breath sounds Heart:S1 and S2 reg, tachycardic Abd:Soft, non tender, non distended Ext:No edema. no clubbing, no cyanosis Neuro: Intubated, sedated Results - Lab Results 04/01/21 05:56 04/01/21 05:56 Most recent lab results ABG pH 6.715 (7.320-7.450) L 04/01/21 09:33 ABG O2 Saturation 80.3 (0-100) 04/01/21 09:33 Calcium 7.5 mg/dL (8.4-10.2) L 04/01/21 05:56 Assessment and Plan # Acute Kidney Injury: creatinine 2.0 on arrival, no baseline, suspect pre-renal injury in setting of severe GI bleed/anemia with substantial acidosis as well as likely tubular injury subsequently given cardiac arrest, overall illness - aggressive IVF resuscitation at this time, agree with pRBCs currently, HCO3 gtt and NS for additional hydration as tolerated - renal ultrasound, serologies if not improving - avoid nephrotoxins - renally dose medications - check BMP q8 hours for now - MAP>70 as able with pressors - no emergent indication for renal replacement therapy; if remains acidotic or is found to be anuric despite IVF, will need, but currently not stable for dialysis and would benefit from supportive measures first # Metabolic Acidosis: due to lactic acidosis and UBALDO, aggressive IVF as able including HCO3 gtt for now # Cardiac arrest # Severe anemia from Acute GI Bleed: agree with PRBC transfusion, appreciate GI assistance # Acute respiratory failure, intubated # Hypovolemic shock: currently on Levophed, vasopressin; aggressive IVF # Coagulopathy, Alcoholic liver disease, Transaminitis
[2021-04-01 13:40] LABS: Band Neutrophils # (Manual) 2.4 K/mm3; Total Cells Counted 100
[2021-04-01 13:43] LABS: Hypochromasia 3+; Smudge Cells 2+
[2021-04-01 13:44] LABS: Macrocytosis 3+
[2021-04-01 13:45] LABS: Platelet Estimate Consistent w Auto
--- NOTE | 2021-04-01 14:00 | Consultation ---
History of Present Illness Consult date: 04/01/21 Requesting physician: ADRIA OMER Consult reason: atrial fibrillation, cardiac arrest History of present illness: This patient is a 50-year-old male with a significant history of EtOH dependence (12 beers per day). He is previously unknown to our practice. Patient is brought to [facility] ER via EMS after cardiac arrest with ROSC, secondary to ruptured esophageal varices/exsanguination. reports patient has had melena, hematochezia, hematemesis x3 days. EMS found the patient to be altered mental status, unresponsive to stimuli and profound sinus bradycardia rate 28. Patient underwent external cardiac pacing before loss of pulse. GI was consulted in the ER and 3 bands were placed via EGD for actively bleeding esophageal varices. Patient is currently intubated and sedated and thus history is obtained via the chart. Cardiology is consulted for postarrest care. Patient is currently in atrial fibrillation. No previous admissions or cardiac diagnostic records are available for review. Past History Past Medical History: other (See HPI) Social history: alcohol abuse, full code Family history: no significant family history Medications and Allergies Allergies Allergy/AdvReac Type Severity Reaction Status Date / Time No Known Allergies Allergy Verified 04/01/21 13:40 Home Medications Medication Instructions Recorded Confirmed Last Taken Type No Known Home Medications [No 04/01/21 04/01/21 Unknown History Reported Home Medications] Active Meds: Active Medications Acetaminophen (Acetaminophen 325 Mg/10.15 Ml Oral Liqd Unit Dose) 650 mg FEEDTUBE Q6H PRN PRN Reason: Pain MILD(1-3)/Fever >100.5/[place] Dextrose (Dextrose 50% In Water (25gm) 50 Ml Syringe) 50 ml IV ONCE ALEE Stop: 04/01/21 15:00 Fentanyl (Fentanyl 100 Mcg/2 Ml Inj) 50 mcg IV Q2H PRN PRN Reason: Agitation Hydrophilic Ointment (Lip Therapy Vaseline) 1 applic TP Q2HR PRN PRN Reason: Dry Lips Norepinephrine (Levophed Drip 4 Mg/Ns 250 Ml) 4 mg in 250 mls @ 7.5 mls/hr IV TITR ALEE; Protocol Last Titration: 04/01/21 06:30 Dose: 30 mcg/min, 112.5 mls/hr Documented by: Pantoprazole Sodium 80 mg/ (Sodium Chloride) 100 mls @ 10 mls/hr IV DIRECT ALEE Last Admin: 04/01/21 09:19 Dose: 8 mg/hr, 10 mls/hr Documented by: Octreotide Acetate 500 mcg/ (Sodium Chloride) 101 mls @ 10.1 mls/hr IV TITR ONE; Protocol Stop: 04/01/21 19:59 Last Admin: 04/01/21 10:05 Dose: 50 mcg/hr, 10.1 mls/hr Documented by: Propofol (Diprivan 10 Mg/Ml) 1,000 mg in 100 mls @ 2.37 mls/hr IV TITR ALEE; Protocol Vasopressin 20 unit/ Sodium (Chloride) 101 mls @ 9.09 mls/hr IV TITR ALEE; Protocol Last Admin: 04/01/21 11:14 Dose: 0.03 units/min, 9.09 mls/hr Documented by: Cefepime HCl (Cefepime/Ns 2 Gm/100 Ml) 2 gm in 100 mls @ 200 mls/hr IV Q24H ALEE Sodium Bicarbonate 150 meq/ (Dextrose) 1,150 mls @ 125 mls/hr IV DIRECT ALEE Lactated Ringer's (Lactated Ringers) 2,000 mls @ 999 mls/hr IV BOLUS ONE Stop: 04/01/21 14:47 Lorazepam (Lorazepam 2 Mg/Ml Vial) 2 mg IV Q4H PRN PRN Reason: Agitation Morphine Sulfate (Morphine 2 Mg/1 Ml Inj) 2 mg IV Q4H PRN PRN Reason: Pain, Moderate (4-6) Morphine Sulfate (Morphine 4 Mg/1 Ml Inj) 4 mg IV Q4H PRN PRN Reason: Pain , Severe (7-10) Multi-Ingred Cream/Lotion/Oil/Oint (Mineral Oil/Petrolatum, White Ophth Oint 3.5 Gm) 1 applic OU Q4HR PRN PRN Reason: Dry Eye(s) Sodium Chloride (Sodium Chloride 0.9% 10 Ml Flush Syringe) 10 ml IV BID ALEE Sodium Chloride (Sodium Chloride 0.9% 10 Ml Flush Syringe) 10 ml IV PRN PRN PRN Reason: LINE FLUSH Review of Systems ROS unobtainable: due to endotracheal tube, due to mental status Physical Examination Last Vital Signs Temp 93.1 F L 04/01/21 12:14 Pulse 79 04/01/21 13:21 Resp 20 04/01/21 13:21 BP 102/31 04/01/21 13:21 Pulse Ox 100 04/01/21 13:21 General appearance: other (Intubated and sedated) HEENT: Positive: Other (Intubated and sedated) Neck: Positive: neck supple, trachea midline Cardiac: Positive: Reg Rate and Rhythm, S1/S2 Lungs: Positive: Ventilated Respirations Neuro: Positive: Other (Intubated and sedated) Abdomen: Positive: Distended Skin: Negative: Rash Extremities: Present: upper extr. pulses. Absent: edema Results 04/01/21 05:56 04/01/21 05:56 Cardiac Enzymes 04/01/21 Range/Units 05:56 AST 1186 H (5-40) units/L CK-MB (CK-2) 3.8 (0.0-4.0) ng/mL Coagulation 04/01/21 Range/Units 05:56 PT 51.0 H (12.2-14.9) Sec. INR 5.74 H* (0.87-1.13) APTT 89.8 H* (24.2-36.6) Sec. CBC 04/01/21 Range/Units 05:56 WBC 26.7 H (4.5-11.0) K/mm3 RBC 0.91 L (3.65-5.03) M/mm3 Hgb 3.2 L* (11.8-15.2) gm/dl Hct 11.9 L* (35.5-45.6) % Plt Count 150 (140-440) K/mm3 Lymph # (Auto) [employer] Comprehensive Metabolic Panel 04/01/21 Range/Units 05:56 Sodium 137 (137-145) mmol/L Potassium 5.3 H (3.6-5.0) mmol/L Chloride 104.2 (98-107) mmol/L Carbon Dioxide 5 L* (22-30) mmol/L BUN 23 H (9-20) mg/dL Creatinine 2.0 H (0.8-1.3) mg/dL Glucose 62 L (75-100) mg/dL Calcium 7.5 L (8.4-10.2) mg/dL AST 1186 H (5-40) units/L ALT 235 H (7-56) units/L Alkaline Phosphatase 87 (35-129) units/L Total Protein 3.9 L (6.3-8.2) g/dL Albumin 1.3 L (3.9-5) g/dL - Imaging and Cardiology Echo: pending EKG: report reviewed, image reviewed EKG interpretations - Telemetry EKG Rhythm: Atrial Fibrillation - EKG Sinus rhythms and dysrhythmias: sinus rhythm Supraventricular dysrhythmia: atrial fibrillation Assessment and Plan S/p cardiac arrest with ROSC. * Twelve-lead shows no acute ischemic changes. Troponin is negative x2. We will continue to trend CE's. * Review of ER physician documentation indicates PEA arrest with single round of CPR with epi x1, no defibrillation. * Currently profoundly unstable requiring multiple vasopressors for hemodynamic support Atrial fibrillation with RVR * Telemetry reviewed atrial fibrillation heart rate 100s. * Echocardiogram is pending * No anticoagulation in setting of profound anemia * No rate control at this time due to profound hypotension, If heart rate becomes uncontrolled, greater than 130 bpm, then recommend initiation of amiodarone drip with loading dose as tolerated. Exsanguination secondary to ruptured esophageal varices * Bleeding controlled via esophageal banding. GI is following. Alcohol dependence * Liver indices are elevated * reports 12 alcoholic beverages per night. Management per primary team DVT prophylaxis * No AC in setting of profound anemia Echocardiogram is pending. Will follow This patient seen in conjunction with Dr Hitchcock who agrees with this assessment and plan of care - Patient Problems (1) Esophageal varices with bleeding Current Visit: Yes Status: Acute (2) Alcohol dependence Current Visit: Yes Status: Acute (3) Acute metabolic encephalopathy Current Visit: Yes Status: Acute (4) Alcoholic liver disease Current Visit: Yes Status: Acute (5) Cardiac arrest Current Visit: Yes Status: Acute (6) Atrial fibrillation Current Visit: Yes Status: Acute
--- NOTE | 2021-04-01 15:07 | Event Note ---
I was called to the bedside. Patient did not have palpable pulse. Rhythm on monitor narrow complex tachycardia rate 130 bpm. Patient was bagged with ETT with ambu bag by colleague. Chest compressions performed Patient received additional normal saline bolus, epinephrine, sodium bicarbonate. ROSC achieved. I notified hospitalist service. Patient had copious amount of bleeding from mouth nose and rectum. Patient is receiving additional FFP. He is currently on maximum norepinephrine drip and vasopressin.
--- NOTE | 2021-04-01 15:19 | Consultation ---
History of Present Illness Consult date: 04/01/21 Past History Past Medical History: other (See HPI) Social history: alcohol abuse, full code Family history: no significant family history Medications and Allergies Allergies Allergy/AdvReac Type Severity Reaction Status Date / Time No Known Allergies Allergy Verified 04/01/21 13:40 Home Medications Medication Instructions Recorded Confirmed Last Taken Type No Known Home Medications [No 04/01/21 04/01/21 Unknown History Reported Home Medications] Active Meds: Active Medications Acetaminophen (Acetaminophen 325 Mg/10.15 Ml Oral Liqd Unit Dose) 650 mg FEEDTUBE Q6H PRN PRN Reason: Pain MILD(1-3)/Fever >100.5/[place] Fentanyl (Fentanyl 100 Mcg/2 Ml Inj) 50 mcg IV Q2H PRN PRN Reason: Agitation Hydrophilic Ointment (Lip Therapy Vaseline) 1 applic TP Q2HR PRN PRN Reason: Dry Lips Norepinephrine (Levophed Drip 4 Mg/Ns 250 Ml) 4 mg in 250 mls @ 7.5 mls/hr IV TITR ALEE; Protocol Last Titration: 04/01/21 06:30 Dose: 30 mcg/min, 112.5 mls/hr Documented by: Pantoprazole Sodium 80 mg/ (Sodium Chloride) 100 mls @ 10 mls/hr IV DIRECT ALEE Last Admin: 04/01/21 09:19 Dose: 8 mg/hr, 10 mls/hr Documented by: Octreotide Acetate 500 mcg/ (Sodium Chloride) 101 mls @ 10.1 mls/hr IV TITR ONE; Protocol Stop: 04/01/21 19:59 Last Admin: 04/01/21 10:05 Dose: 50 mcg/hr, 10.1 mls/hr Documented by: Propofol (Diprivan 10 Mg/Ml) 1,000 mg in 100 mls @ 2.37 mls/hr IV TITR ALEE; Protocol Vasopressin 20 unit/ Sodium (Chloride) 101 mls @ 9.09 mls/hr IV TITR ALEE; Protocol Last Admin: 04/01/21 11:14 Dose: 0.03 units/min, 9.09 mls/hr Documented by: Cefepime HCl (Cefepime/Ns 2 Gm/100 Ml) 2 gm in 100 mls @ 200 mls/hr IV Q24H ALEE Sodium Bicarbonate 150 meq/ (Dextrose) 1,150 mls @ 125 mls/hr IV DIRECT ALEE Lorazepam (Lorazepam 2 Mg/Ml Vial) 2 mg IV Q4H PRN PRN Reason: Agitation Morphine Sulfate (Morphine 2 Mg/1 Ml Inj) 2 mg IV Q4H PRN PRN Reason: Pain, Moderate (4-6) Morphine Sulfate (Morphine 4 Mg/1 Ml Inj) 4 mg IV Q4H PRN PRN Reason: Pain , Severe (7-10) Multi-Ingred Cream/Lotion/Oil/Oint (Mineral Oil/Petrolatum, White Ophth Oint 3.5 Gm) 1 applic OU Q4HR PRN PRN Reason: Dry Eye(s) Sodium Chloride (Sodium Chloride 0.9% 10 Ml Flush Syringe) 10 ml IV BID ALEE Sodium Chloride (Sodium Chloride 0.9% 10 Ml Flush Syringe) 10 ml IV PRN PRN PRN Reason: LINE FLUSH Physical Examination Vital signs: Vital Signs Pulse Resp BP Pulse Ox 94 H 17 109/14 100 04/01/21 06:15 04/01/21 06:15 04/01/21 06:15 04/01/21 06:15 Results - Laboratory Findings CBC and BMP: 04/01/21 05:56 04/01/21 05:56 ABG ABG pH 6.715 (7.320-7.450) L 04/01/21 09:33 POC ABG pCO2 31.8 mmHg (32.0-48.0) L 04/01/21 09:33 POC ABG pO2 68.5 mmHg (83-108) L 04/01/21 09:33 POC ABG HCO3 4.0 04/01/21 09:33 ABG O2 Saturation 80.3 (0-100) 04/01/21 09:33 PT/INR, D-dimer PT 51.0 Sec. (12.2-14.9) H 04/01/21 05:56 INR 5.74 (0.87-1.13) H* 04/01/21 05:56 Abnormal lab findings: Abnormal Labs 04/01/21 04/01/21 04/01/21 05:56 05:56 05:56 WBC 26.7 H RBC 0.91 L Hgb 3.2 L* Hct 11.9 L* MCV 130 H MCH 35 H MCHC 27 L RDW 21.1 H Seg Neuts % (Manual) 72.0 H Lymphocytes % (Manual) 11.0 L Seg Neutrophils # Man 19.2 H Monocytes # (Manual) 1.6 H Eosinophils # (Manual) 0.5 H PT 51.0 H INR 5.74 H* APTT 89.8 H* Fibrinogen ABG pH POC ABG pCO2 POC ABG pO2 ABG Hemoglobin ABG Oxyhemoglobin ABG Sodium ABG Potassium ABG Chloride ABG Glucose Carboxyhemoglobin Potassium 5.3 H Carbon Dioxide 5 L* BUN 23 H Creatinine 2.0 H Glucose 62 L Lactic Acid Calcium 7.5 L Total Bilirubin 6.10 H AST 1186 H ALT 235 H Ammonia Total Protein 3.9 L Albumin 1.3 L Lipase Arterial Blood Glucose Urine WBC (Auto) Crossmatch 04/01/21 04/01/21 04/01/21 05:56 05:56 06:00 WBC RBC Hgb Hct MCV MCH MCHC RDW Seg Neuts % (Manual) Lymphocytes % (Manual) Seg Neutrophils # Man Monocytes # (Manual) Eosinophils # (Manual) PT INR APTT Fibrinogen 96 L* ABG pH POC ABG pCO2 POC ABG pO2 ABG Hemoglobin ABG Oxyhemoglobin ABG Sodium ABG Potassium ABG Chloride ABG Glucose Carboxyhemoglobin Potassium Carbon Dioxide BUN Creatinine Glucose Lactic Acid 23.90 H* Calcium Total Bilirubin AST ALT Ammonia Total Protein Albumin Lipase Arterial Blood Glucose Urine WBC (Auto) Crossmatch See Detail 04/01/21 04/01/21 04/01/21 06:45 07:32 07:33 WBC RBC Hgb Hct MCV MCH MCHC RDW Seg Neuts % (Manual) Lymphocytes % (Manual) Seg Neutrophils # Man Monocytes # (Manual) Eosinophils # (Manual) PT INR APTT Fibrinogen ABG pH POC ABG pCO2 POC ABG pO2 ABG Hemoglobin ABG Oxyhemoglobin ABG Sodium ABG Potassium ABG Chloride ABG Glucose Carboxyhemoglobin Potassium Carbon Dioxide BUN Creatinine Glucose Lactic Acid Calcium Total Bilirubin AST ALT Ammonia 710.0 H Total Protein Albumin Lipase 241 H Arterial Blood Glucose Urine WBC (Auto) 26.0 H Crossmatch 04/01/21 04/01/21 07:33 09:33 WBC RBC Hgb Hct MCV MCH MCHC RDW Seg Neuts % (Manual) Lymphocytes % (Manual) Seg Neutrophils # Man Monocytes # (Manual) Eosinophils # (Manual) PT INR APTT Fibrinogen ABG pH 6.715 L POC ABG pCO2 31.8 L POC ABG pO2 68.5 L ABG Hemoglobin 5.6 L ABG Oxyhemoglobin 79.9 L ABG Sodium 132.6 L ABG Potassium 5.3 H ABG Chloride 110.0 H ABG Glucose 31 L Carboxyhemoglobin 0 L Potassium Carbon Dioxide BUN Creatinine Glucose Lactic Acid 23.10 H* Calcium Total Bilirubin AST ALT Ammonia Total Protein Albumin Lipase Arterial Blood Glucose 31 L Urine WBC (Auto) Crossmatch
--- NOTE | 2021-04-01 15:23 | Event Note ---
Date: 04/01/21 Called and spoke with . Did not know that the patient was coding when I was on the phone with her. I was very blunt about the patient's condition and the likelihood of cardiac arrest again and not being able to get him back. I explained to her that no matter what we do to try to correct these abnormalities, he will still meet his demise. She then instructed me to call a brother but I do not have a number for him. She states that she will reach out. She also says that his brother would make decisions so I am not sure if she is his or not. She does understand the severity of his illness.
[2021-04-01] MEDS ORDERED: SODIUM BICARB 8.4% 50 MEQ/50 ML SYRINGE IV SCH (15:30)
[2021-04-01] MEDS ORDERED: DEXTROSE 50% IN WATER (25GM) 50 ML SYRINGE IV ONE (15:37)
--- NOTE | 2021-04-01 15:40 | Event Note ---
Date: 04/01/21 Patient had another cardiac arrest, resuscitated as per ACLS protocol. I called girlfriend, Tonie , and she says patient's brother Chirag Gloria makes decision. I called Chirag Juani , discussed with him the poor prognosis. He wants patient to remain full code and do whatever we can to resuscitate him. He states he is in [place] , will come to Hospital as soon as he can. I also discussed with Dr. Nunez, GI and Dr. Mcmanus, Pulm
[2021-04-01] MEDS ORDERED: SODIUM BICARB 8.4% 50 MEQ/50 ML SYRINGE IV ONE ×3 (16:00→17:00)
[2021-04-01] MEDS ORDERED: EPINEPHrine 1 MG/10 ML SYRINGE ONE ×2 (17:00)
[2021-04-01] MEDS ORDERED: ATROPINE 0.1% (1 MG/10 ML) CARDIAC SYRINGE ONE (17:00)
[2021-04-01 17:17] VITALS: BP 86/13
--- NOTE | 2021-04-01 18:39 | Event Note ---
Date: 04/01/21 Patient had another cardiac arrest about 4:40 pm. He was resuscitated. I spoke to brother at bedside , and he was interested and signed DNR form. Patient had profuse bleeding from mouth, nose. Patient got worse eventually , was pronounced 17:35 pm on 04/01/21
--- NOTE | 2021-04-01 18:39 | Death Summary ---
Summary - Providers Date of service: 04/01/21 Consults: 04/01/21 05:53 Consult to Dietitian/Nutrition [CONS] Routine Physician Instructions: Reason For Exam: Reason for Consult: Evaluate nutritional intake 04/01/21 08:31 Consult to Physician [CONS] Stat Comment: Consulting Provider: RITA MARIN Physician Instructions: Reason For Exam: ugib alcoholic liver disease 04/01/21 09:22 Consult to Physician [CONS] Urgent Comment: Consulting Provider: HILDA MCMANUS Physician Instructions: Reason For Exam: Acyute resp failure, intubated, 04/01/21 09:29 Consult to Physician [CONS] Routine Comment: Consulting Provider: CHASITY HUITRON Physician Instructions: Reason For Exam: Acute renal failure, cardiac arrest 04/01/21 09:52 Consult to Physician [CONS] Routine Comment: Consulting Provider: LIBRA ALEJANDRA Physician Instructions: Reason For Exam: cardiac arrest Attending: ADRIA OMER - summary Date of admission: 04/01/21 10:18 Date of : 04/01/21 Procedures/treatments rendered: Patient is a 50-year-old male who presented to Emergency Dept with EMS for cardiac arrest. History obtained from medical records as patient wass intubated and no family present nearby. Patient was en route with EMS for altered mental status when he became bradycardic and went to cardiac arrest. EMS initiated CPR. The patient went into cardiac arrest as soon as EMS pulled into the hospital. He was resuscitated, intubated. According to records, stated that patient has had vomiting blood, bloody stools and abdominal pain radiating to the back for the past several days. Also patient was short of breath this morning, gasping for air. Also patient has lost a lot of weight over the last few months. He has not received medical care in quite some time. In addition, he takes ibuprofen daily for chronic left shoulder pain. He drinks 12 large "tall boy" beers per day. He was seen and evaluated in ED. Labs show severe anem ia with Hgb 3.2, coagulopathy with INR 5.74 and bicarb of 5. Blood and FFP transfusions were ordered, urgent GI consult placed. Orders put in to admit to ICU. He was seen by GI, Pulmonology,Nephrology and cardiology. Urgent bedside EGD was done revealed large amount of blood in upper GI tract, esophageal varices seen and banding done. He was given total 6 Units PRBC, FFP, started on Bicarb drip, given Vitamin K. However he worsened. He had cardiac arrest several times and was resuscitated. However his Brother Chirag Gloria eventually signed DNR papers. Patient continued to bleed profusely, deteriorated and 17:35 on 04/01/21. Cardiac arrest Patient resuscitated, intubated Severe anemia from Acute GI Bleed Hgb 3.2 has received 2 Units PRBC I have ordered 4 Units PRBC more Acute GI Bleed Vit K 10 mg ordered Esophageal varices Acute resp failure Intubated Consult Pulm, Dr. Mcmanus. I discussed case with him Hypovolemic shock On Levophed at max dose Added Vasopressin iv fluid bolus 1000 cc NS, then re-evaluate Coagulopathy INR 5.7 Likely from alcoholic liver disease Vit K FFP Check Fibrinogen level Alcoholic liver disease Transaminitis Acute kidney injury Cr 2.0 Consulted Nephrology I discussed with Dr. Buenrostro Hyperkalemia Metabolic acidosis, Lactic acidosis Give Bicarb Hypothermia Leukocytosis Blood cultures drawn Cefepime ordered - Final diagnosis (1) Acute metabolic encephalopathy Note: Final diagnosis: (2) Alcoholic liver disease Note: Final diagnosis: (3) Atrial fibrillation Note: Final diagnosis: (4) Cardiac arrest Note: Final diagnosis: (5) Esophageal varices with bleeding Note: Final diagnosis: (6) Upper GI bleed Note: Final diagnosis: (7) Hyperkalemia Note: Final diagnosis: (8) UBALDO (acute kidney injury) Note: Final diagnosis: (9) Metabolic acidosis Note: Final diagnosis:
[2021-04-01] MEDS ORDERED: ROCURONIUM 50 MG/5 ML INJ IV ONE (22:22)
[2021-04-01] MEDS ORDERED: ETOMIDATE 20 MG/10 ML INJ IV ONE (22:22)
== END 2021-04-01 20:00 | DRG 432 ==
LOC: EDBD → ED 05:35 → CC1 10:18
PROVIDERS: ADMIT Internal Medicine; ATTEND Internal Medicine
PROC: 0BH17EZ Insertion of Endotracheal Airway into Trachea, Via Natural or Artificial Opening (ICD-10-PCS; principal; 2021-04-01)
PROC: 5A1935Z Respiratory Ventilation, Less than 24 Consecutive Hours (ICD-10-PCS; 2021-04-01)
PROC: 5A12012 Performance of Cardiac Output, Single, Manual (ICD-10-PCS; 2021-04-01)
PROC: 02HV33Z Insertion of Infusion Device into Superior Vena Cava, Percutaneous Approach (ICD-10-PCS; 2021-04-01)
PROC: 30233N1 Transfusion of Nonautologous Red Blood Cells into Peripheral Vein, Percutaneous Approach (ICD-10-PCS; 2021-04-01)
PROC: 06L38CZ Occlusion of Esophageal Vein with Extraluminal Device, Via Natural or Artificial Opening Endoscopic (ICD-10-PCS; 2021-04-01)
PROC: 4A033R1 Measurement of Arterial Saturation, Peripheral, Percutaneous Approach (ICD-10-PCS; 2021-04-01)
DX: K70.10 Alcoholic hepatitis without ascites (principal); G93.41 Metabolic encephalopathy; J96.00 Acute respiratory failure, unspecified whether with hypoxia or hypercapnia; I85.11 Secondary esophageal varices with bleeding; D62 Acute posthemorrhagic anemia; D68.9 Coagulation defect, unspecified; N17.9 Acute kidney failure, unspecified; E87.2 Acidosis; I48.20 Chronic atrial fibrillation, unspecified; Z66 Do not resuscitate; I46.9 Cardiac arrest, cause unspecified; Y90.9 Presence of alcohol in blood, level not specified; R57.1 Hypovolemic shock; E87.5 Hyperkalemia; D72.829 Elevated white blood cell count, unspecified; G43.909 Migraine, unspecified, not intractable, without status migrainosus; F10.20 Alcohol dependence, uncomplicated
CPT/HCPCS: 31500; 36415; 70450; 71045; 80053; 81001; 82140; 82550; 82553; 82805; 82962; 83690; 84484; 85007; 85025; 85384; 85610; 85730; 86850; 86900; 86901; 86920; 87040; 87086; 93005; 94002; G0378; C9113; J0171; J0461; J0696; J2250; J2354; J3010; J3430; J7030; J7040; J7050; J7070; J7120; P9016